=== PATIENT | female | born 1970 | race Caucasian/White ===

== ENCOUNTER 2024-05-12 21:53 | Emergency (ER) | payer SELFPAY ==
[2024-05-12 22:02] VITALS: BP 117/70
[2024-05-12 22:18] LABS: % Basophils 0.2 % (0-2); % Immature Granulocytes 0.3 % (0-0.5); % Monocytes 6.2 % (1.7-9.3); % Neutrophils 60.3 % (42.2-75.2); Absolute Monocytes 0.4 10^3/uL (0.1-0.6); Absolute Neutrophils 3.6 10^3/uL (1.4-6.5); Hematocrit 35.9 % (37.0-47.0); Hemoglobin 12.1 g/dL (12.0-16.0); Mean Corp Hgb Conc. 33.7 g/dL (33.0-37.0); Mean Corpuscular Hgb 27.4 pg (27.0-31.0); Mean Corpuscular Volume 81.4 fL (81.0-99.0); Mean Platelet Volume 8.2 fL (7.4-10.4); Nucleated Red Blood Cells % 0 %; Platelet Count 255 10^3/uL (130-400); Red Blood Cell Count 4.41 10^6/uL (4.20-5.40); Red Cell Dist. Width 15.2 % (11.5-14.5); White Blood Cell Count 5.9 10^3/uL (4.8-10.8)
[2024-05-12 22:37] LABS: ALT (SGPT) 14 U/L (0-35); AST (SGOT) 18 U/L (14-36); Albumin 3.6 g/dl (3.5-5.0); Alkaline Phosphatase 116 U/L (38-126); Blood Urea Nitrogen 3 mg/dl (7-17); Calcium 8.9 mg/dl (8.4-10.2); Carbon Dioxide 30 mmol/L (22-30); Chloride 96 mmol/L (98-107); Glucose 107 mg/dl (70-99); Potassium 3.6 mmol/L (3.5-5.1); Sodium 130 mmol/L (135-145); Total Bilirubin 0.4 mg/dl (0.2-1.3); Total Protein 6.4 g/dl (6.3-8.2); eGFR > 60.00
--- NOTE | 2024-05-12 23:26 | ED.GENMED ---
History of Present Illness
General
Chief Complaint: Cold/Flu/URI Symptoms
Source: patient
Exam Limitations: none
Time Seen by Provider: 05/12/24 23:25
Nursing documentation reviewed up to this point in time: agreed with
History of Present Illness
History of Present Illness:
53-year-old female with history of COPD, smoker, CAD, A-fib on aspirin, HTN, HLD, [place], aortic regurgitation, anemia, anxiety presents stating she tested flu +5 days ago' of just not getting better.' She states her nose is stuffy, she has no taste,
she is fatigued and she has general body aches. She denies N/V/D, she has had a couple episodes of diarrhea. She denies chest pain or shortness of breath.
Past History
Past History
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
diverticulitis with abscess); Negative HTN
ED Past Surgical History: Other (Abscess drainage from acute diverticulitis)
Social History
Tobacco: Smoker
Alcohol: None
Drug: None
Personal:
Living: with family
Employment: Not employed
Family History
Family History: Hypertension and CAD (uncles); Negative Early CAD
Review of Systems
Review of Systems
Allergies reviewed?: Yes
All Other Systems: ROS reviewed and negative except as documented in HPI and ROS
Constitutional: Reports fatigue; Denies fever
EENT: Reports other (Loss of taste); Denies sore throat
Respiratory: Denies cough or trouble breathing
Cardiac: Denies chest pain
ABD/GI: Reports nausea and diarrhea; Denies abdominal pain or vomiting
: Denies dysuria or difficulty voiding
Musculoskeletal: Reports other (General body aches)
Skin: Reports no symptoms
Neurological: Reports no symptoms
Phy Exam
Physical Exam
Physical Exam:
GENERAL: No acute distress. A&Ox3.
CONSTITUTIONAL: Afebrile.
EYES: clear, conjunctivae normal
ENMT: moist mucus membranes, Pharynx nl, nasal voice, sinus stuffiness
RESPIRATORY: Regular respirations, nonlabored, lungs clear.
CARDIOVASCULAR: Regular rate and rhythm, no murmurs, no rubs.
GI: Soft, nontender, normal BS
MUSCULOSKELETAL: Moves with ease. Well perfused.
SKIN: Warm, dry, pink
PSYCH: Depressed mood and affect. Well kept, interactive and appropriate
NEUROLOGIC: Awake, alert and oriented. No focal neurological deficits
Course
Orders/Labs/Results
Orders:
Orders
05/12/24 22:12
Complete Blood Count/With Diff Urgent
Comprehensive Metabolic Panel Urgent
05/12/24 23:30
COVID-19 Antigen Urgent
Source: Nasal Swab
Ketorolac [Toradol] 15 mg IV NOW STA
05/12/24 23:31
0.9% Sodium Chloride 1000 ml [Nss] 1,000 ml IV BOLUS
05/12/24 23:47
Ondansetron Injectable [Zofran] 4 mg IV NOW STA
Abnormal Lab Results
05/12/24
22:12
Hct 35.9 L %
(37.0-47.0)
RDW 15.2 H %
(11.5-14.5)
Sodium 130 L mmol/L
(135-145)
Chloride 96 L mmol/L
(98-107)
BUN 3 L mg/dl
(7-17)
Glucose 107 H mg/dl
(70-99)
05/12/24 22:12
05/12/24 22:12
Vital Signs
Initial and Last Documented VS:
Initial Vital Signs
Temp Pulse Resp BP Pulse Ox
97.8 F 73 18 117/70 98
05/12/24 22:02 05/12/24 22:02 05/12/24 22:02 05/12/24 22:02 05/12/24 22:02
Last Documented Vital Signs
Temp Pulse Resp BP Pulse Ox
97.8 F 73 18 117/70 98
05/12/24 22:02 05/12/24 22:02 05/12/24 22:02 05/12/24 22:02 05/12/24 23:15
MDM/Problems Addressed
Differential Diagnosis Includes:
COVID, dehydration
MDM/Problems Addressed:
53-year-old female with history of COPD, smoker, CAD, A-fib on aspirin, HTN, HLD, [place], aortic regurgitation, anemia, anxiety presents stating she tested flu +5 days ago' of just not getting better.' She states her nose is stuffy, she has no taste,
she is fatigued and she has general body aches. She denies N/V/D, she has had a couple episodes of diarrhea. She denies chest pain or shortness of breath.
Afebrile, NAD
CBC unremarkable
CMP: Sodium 130 otherwise unremarkable (NSS infusing)
Covid neg
After IVFs, IV Toradol and Zofran, feeling a little better
Stable for discharge
*Critical Care Note
Total Time (30-74mins, 75-104mins- exclusive of procedures): Not Applicable
ED Attending Note
-
Portions of this chart may have been created with voice recognition software.� Occasional wrong word or��sound alike� substitutions may have occurred due to the inherent limitations of voice recognition software.
Discharge Plan
Departure
Patient Disposition: Home (Routine Discharge)
Date of Disposition: 05/13/24
Time of Disposition: 00:12
Patient with high blood pressure during this ER visit?: No
Condition: Good
Covid-19: Negative COVID-19
Discharge Problem:
Influenza
Instructions: Flu in adults - Discharge instructions
Prescriptions:
New
ondansetron 4 mg tablet,disintegrating
4 mg PO Q8H PRN (Reason: nausea and vomiting) 4 Days Qty: 12 0RF
No Action
Atorvastatin
80 mg PO QPM
aspirin 81 MG tablet,chewable
162 mg PO DAILY
metoprolol tartrate 12.5 MG tablet
25 mg PO DAILY
nitroglycerin 0.4 MG tablet, sublingual
0.4 mg sublingual PRN PRN (Reason: chest pain)
Referrals:
UNKNOWN - PT DOES,NOT KNOW [Family Provider] -
Activity Restrictions/Additional Instructions:
As we discussed, your symptoms are related to the flu.
Drink at least eight 8 ounce glasses of water/fluid daily.
Tylenol or ibuprofen as needed for general body aches, fever
Interventions
Interventions:
*Risk Screen - Suicide Last Done: 05/12/24 22:02
*General Assessment Last Done: 05/12/24 22:02
*Neglect/Abuse Screening Last Done: 05/12/24 22:02
*ED COVID-19 Vaccine History Last Done: 05/12/24 23:15
*Nursing Disposition Last Done: 05/13/24 00:32
ED- Pulmonary Assessment Last Done: 05/12/24 23:15
Discharge Date and Time
Discharge Date/Time: 05/13/24 00:49
Print Language: ANGOLAN
[2024-05-12 23:49] LABS: COVID-19 Antigen Negative (Negative)
[2024-05-12] MEDS: ZOFRAN 4 MG IV (23:56)
[2024-05-12] MEDS: NSS 1000 IV (23:56)
[2024-05-12] MEDS: TORADOL 15 MG IV (23:56)
== END 2024-05-13 00:49 | disposition home or self-care (01) ==
LOC: EMR 21:53
PROVIDERS: Registered Nurse; Student in an Organized Health Care Education/Training Program; EMERGENCY PHYSICIAN Student in an Organized Health Care Education/Training Program
DX: J11.1 Influenza due to unidentified influenza virus with other respiratory manifestations (principal); R19.7 Diarrhea, unspecified; R11.0 Nausea; Z11.52 Encounter for screening for COVID-19; J44.9 Chronic obstructive pulmonary disease, unspecified; I25.10 Atherosclerotic heart disease of native coronary artery without angina pectoris; I48.91 Unspecified atrial fibrillation; I10 Essential (primary) hypertension; E78.00 Pure hypercholesterolemia, unspecified; I35.1 Nonrheumatic aortic (valve) insufficiency; D64.9 Anemia, unspecified; F41.9 Anxiety disorder, unspecified; F17.200 Nicotine dependence, unspecified, uncomplicated; K57.92 Diverticulitis of intestine, part unspecified, without perforation or abscess without bleeding; I25.2 Old myocardial infarction; Z79.82 Long term (current) use of aspirin; Z86.16 Personal history of COVID-19; Z88.1 Allergy status to other antibiotic agents; Z88.5 Allergy status to narcotic agent; Z88.0 Allergy status to penicillin
CPT/HCPCS: 99284; 96374; 96375; 96361; 80053; 85025; 87811

== ENCOUNTER 2024-08-16 05:42 | Emergency (ER) | payer SELFPAY ==
[2024-08-16 05:46] VITALS: BP 124/78
[2024-08-16] MEDS: TORADOL 15 MG IV (07:01)
[2024-08-16 07:03] VITALS: BMI 22.5
--- NOTE | 2024-08-16 07:06 | ED.GENMED ---
History of Present Illness
General
Chief Complaint: Weakness
Source: patient
Exam Limitations: none
Time Seen by Provider: 08/16/24 06:29
Nursing documentation reviewed up to this point in time: agreed with
History of Present Illness
History of Present Illness:
Patient presents to ED secondary to recurrent generalized weakness over the past 3 days, with concern that her sodium or potassium may be low, as this has happened previously. In addition, patient who passed out 1 week ago and was evaluated at
[facility] emergency department, reports persistent posterior headache, neck pain, and back pain. Patient does report having received a chest x-ray during that visit, but allegedly refused recommended CT scan at that time. Denies blurred
vision. Denies dizziness. Denies loss of sensation or weakness. Denies difficulty with speech or swallowing. Patient does report decreased appetite, which has been chronic, secondary to 'GI issues'. Denies recent change in medications or diet.
Denies chest pain or shortness of breath. Patient does have intermittent chronic cough, which has not changed.
Past History
Past History
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
diverticulitis with abscess); Negative HTN
ED Past Surgical History: Other (Abscess drainage from acute diverticulitis)
Social History
Tobacco: Smoker
Alcohol: None
Drug: None
Personal:
Living: with family
Employment: Not employed
Family History
Family History: Hypertension and CAD (uncles); Negative Early CAD
Review of Systems
Review of Systems
Allergies reviewed?: Yes
All Other Systems: ROS reviewed and negative except as documented in HPI and ROS
Constitutional: Reports no symptoms; Denies fever or chills
Respiratory: Reports no symptoms
Cardiac: Reports no symptoms
ABD/GI: Reports no symptoms
: Reports no symptoms; Denies frequency or incontinence
Musculoskeletal: Reports neck pain and back pain
Skin: Reports no symptoms
Neurological: Denies dizzy, weakness or numbness
Phy Exam
Physical Exam
Physical Exam:
Physical Exam
General: mild distress, not acutely ill. afebrile
Head: nc/at. eomi
Neck: supple. normal range of motion. no midline tenderness
Heart: s1/s2 regular rate and rhythm
Lungs: no acute respiratory distress. clear bilaterally
Abdomen: normal bowel sounds. not tender.
Back: no midline tenderness. mild diffuse lower back tenderness to palpation
Neuro: alert and oriented x 3. no focal neurological deficits. normal speech
Skin: no rash
Psychiatric: well kept. interactive and cooperative
Extremities: no edema. no calf tenderness.
Course
Orders/Labs/Results
Orders:
Orders
08/16/24 06:37
Ketorolac [Toradol] 15 mg IV NOW STA
08/16/24 06:38
Electrocardiogram (*1) Urgent
Reason for Study: QTc Monitoring
CT Cervical Spine W/o Iv Contr Urgent
Comment:
Reason For Exam: trauma
CT Head W/o Iv Contrast Urgent
Comment:
Reason For Exam: trauma
EKG- Treatment ONCE
CR Lumbar Spine Comp Min 4 Vw* Urgent
Comment:
Reason For Exam: trauma
08/16/24 06:58
Complete Blood Count/With Diff Urgent
Comprehensive Metabolic Panel Urgent
Magnesium Urgent
TSH Urgent
08/16/24 07:01
Urinalysis Reflex To Culture Urgent
Date Specimen was Collected: 08/16/24
Time Specimen was Collected: 06:59
Urine Microscopic Reflex Cult Urgent
Urine Culture Urgent
HUGO Source: U
Specimen Description:
Date Specimen was Collected: 08/16/24
Time Specimen was Collected: 06:59
08/16/24 08:30
0.9% Sodium Chloride 500 ml [Nss] 500 ml IV BOLUS
08/16/24 09:20
Case Management Consult ONCE
Case Management Consult: VN/Home Care
Abnormal Lab Results
08/16/24 08/16/24
06:58 07:01
MCV 80.7 L fL
(81.0-99.0)
RDW 14.6 H %
(11.5-14.5)
Sodium 134 L mmol/L
(135-145)
BUN < 2 L mg/dl
(7-17)
Creatinine 0.5 L mg/dL
(0.6-1.0)
Leukocyte Esterase Rfl 3+ A
(Negative)
Urine RBC 3-6 A /HPF
(0-2)
Urine WBC (Reflex) 26-30 A /HPF
(0-5)
Urine Bacteria (Reflex) Moderate A
(Negative)
08/16/24 06:58
08/16/24 06:58
Vital Signs
Initial and Last Documented VS:
Initial Vital Signs
Temp Pulse Resp BP Pulse Ox
97.7 F 66 20 124/78 98
08/16/24 05:46 08/16/24 05:46 08/16/24 05:46 08/16/24 05:46 08/16/24 05:46
Last Documented Vital Signs
Temp Pulse Resp BP Pulse Ox
97.7 F 68 22 124/74 97
08/16/24 05:46 08/16/24 08:39 08/16/24 08:39 08/16/24 08:39 08/16/24 08:39
MDM/Problems Addressed
MDM/Problems Addressed:
Patient with an unremarkable workup in ED, including blood work and imaging studies. CT report and x-ray report reviewed and discussed with patient. Patient reports mild improvement in symptoms after treatment. Patient otherwise remains afebrile,
hemodynamically stable, and neurologically intact, and resting comfortably. With normal workup, patient feels comfortable going home at this time. As such, patient will be discharged home to the care of her daughter, with whom she lives with.
Case management consulted for home VN evaluation.
*EKG
Interpreted by ED Provider?: Yes
EKG Intrepretation Date: 08/16/24
Rate: normal
Rhythm: sinus
[place]: normal axis
Interval: normal interval
*Critical Care Note
Total Time (30-74mins, 75-104mins- exclusive of procedures): Not Applicable
ED Attending Note
-
Portions of this chart may have been created with voice recognition software.� Occasional wrong word or��sound alike� substitutions may have occurred due to the inherent limitations of voice recognition software.
Discharge Plan
Departure
Patient Disposition: Home (Routine Discharge)
Date of Disposition: 08/16/24
Time of Disposition: 09:20
Patient with high blood pressure during this ER visit?: Yes
Condition: Good
Discharge Problem:
Weakness, Back pain, Head injury
Instructions: Head injury in adults, Generalized Weakness (DC), Back Pain
Prescriptions:
New
ketorolac 10 mg tablet
10 mg PO Q8H PRN (Reason: Pain) Qty: 14 0RF
Rx Instructions:
maximum total duration of 5 days from all oral, intranasal, or parenteral formulations
No Action
Atorvastatin
80 mg PO QPM
aspirin 81 MG tablet,chewable
162 mg PO DAILY
metoprolol tartrate 12.5 MG tablet
25 mg PO DAILY
nitroglycerin 0.4 MG tablet, sublingual
0.4 mg sublingual PRN PRN (Reason: chest pain)
ondansetron 4 mg tablet,disintegrating
4 mg PO Q8H PRN (Reason: nausea and vomiting) 4 Days Qty: 12 0RF
Referrals:
UNKNOWN - PT DOES,NOT KNOW [Family Provider] -
Activity Restrictions/Additional Instructions:
As discussed, please follow-up with your primary care physician for reevaluation. You have been set up for home VN visit/evaluation. Please consider returning to ED with worsening symptoms. Your prescription has been sent electronically to [facility]
pharmacy in [place].
Interventions
Interventions:
*Risk Screen - Suicide Last Done: 08/16/24 05:46
*General Assessment Last Done: 08/16/24 05:46
*Neglect/Abuse Screening Last Done: 08/16/24 05:46
*ED- Fall Risk Assessment Last Done: 08/16/24 05:46
*ED COVID-19 Vaccine History Last Done: 08/16/24 05:46
*Nursing Disposition Last Done: 08/16/24 10:57
ED- Cardiac Assessment Last Done: 08/16/24 06:23
ED- Neurological Assessment Last Done: 08/16/24 06:23
ED- Pulmonary Assessment Last Done: 08/16/24 06:23
Discharge Date and Time
Discharge Date/Time: 08/16/24 10:58
Print Language: LUXEMBOURGISH
[2024-08-16 07:09] LABS: % Basophils 0.8 % (0-2); % Eosinophils 0.3 % (0-6); % Immature Granulocytes 0.3 % (0-0.5); % Lymphocytes 23.6 % (20.5-51.1); % Monocytes 5.4 % (1.7-9.3); % Neutrophils 69.6 % (42.2-75.2); Absolute Basophils 0.1 10^3/uL (0-0.2); Absolute Lymphocytes 1.5 10^3/uL (1.2-3.4); Absolute Monocytes 0.3 10^3/uL (0.1-0.6); Absolute Neutrophils 4.4 10^3/uL (1.4-6.5); Hematocrit 37.7 % (37.0-47.0); Hemoglobin 13.1 g/dL (12.0-16.0); Mean Corp Hgb Conc. 34.7 g/dL (33.0-37.0); Mean Corpuscular Hgb 28.1 pg (27.0-31.0); Mean Corpuscular Volume 80.7 fL (81.0-99.0); Mean Platelet Volume 8.4 fL (7.4-10.4); Nucleated Red Blood Cells % 0 %; Platelet Count 309 10^3/uL (130-400); Red Blood Cell Count 4.67 10^6/uL (4.20-5.40); Red Cell Dist. Width 14.6 % (11.5-14.5); White Blood Cell Count 6.3 10^3/uL (4.8-10.8)
[2024-08-16 07:22] LABS: Urine Albumin Negative (Neg - Trace); Urine Bilirubin Negative (Negative); Urine Character Slightly Cloudy (Clear); Urine Color Yellow; Urine Glucose Negative (Negative); Urine Ketone Negative (Negative); Urine Leukocyte 3+ (Negative); Urine Nitrite Negative (Negative); Urine Occult Blood Negative (Negative); Urine Urobilinogen Negative (Neg - 1+)
[2024-08-16 07:26] LABS: ALT (SGPT) 15 U/L (0-35); AST (SGOT) 20 U/L (14-36); Alkaline Phosphatase 95 U/L (38-126); Blood Urea Nitrogen < 2 mg/dl (7-17); Calcium 9.5 mg/dl (8.4-10.2); Carbon Dioxide 27 mmol/L (22-30); Chloride 103 mmol/L (98-107); Estimated Creatinine Clearance 89 ml/min; Glucose 99 mg/dl (70-99); Magnesium 1.6 mg/dl (1.6-2.3); Potassium 3.7 mmol/L (3.5-5.1); Sodium 134 mmol/L (135-145); Total Bilirubin 0.5 mg/dl (0.2-1.3); eGFR > 60.00
[2024-08-16 07:36] LABS: Urine Squamous Cell 26-30 /LPF (Few)
[2024-08-16 07:37] LABS: Urine Bacteria Moderate (Negative); Urine White Cell 26-30 /HPF (0-5)
[2024-08-16 07:56] LABS: TSH 2.72 uIU/ml (0.47-4.68)
[2024-08-16] MEDS: NSS 500 IV (08:36)
[2024-08-16 08:39] VITALS: BP 124/74
--- NOTE | 2024-08-16 10:33 | CM ---
Patient seen at bedside in ED. Patient stated that she lives in [facility] but is moving back to [facility] in a week. Patient daughter is caregiver and patient declined VN but indicated that she would like information to review with her
daughter and her PCP will send referral to VN when confirmed. Patient uses the [facility] in [place] on [address] and patient stated that she is currently able to drive and is independent but she is not driving. Patient has a nebulizer and an
inhaler at home. Daughter here for transportation and CM provided information for referral to [facility] [phone]. Patient address in intake is in [place] but patient states that she has never lived in [place]. CM will continue to
follow for discharge planning needs.
Plan; VN; pending patient PCP agreement/family choice
== END 2024-08-16 10:58 | disposition home or self-care (01) ==
LOC: EMR 05:42
PROVIDERS: EMERGENCY PHYSICIAN Emergency Medicine
DX: R53.1 Weakness (principal); M54.9 Dorsalgia, unspecified; S09.90XA Unspecified injury of head, initial encounter; X58.XXXA Exposure to other specified factors, initial encounter; I47.20 Ventricular tachycardia, unspecified; J44.9 Chronic obstructive pulmonary disease, unspecified; E78.00 Pure hypercholesterolemia, unspecified; I25.2 Old myocardial infarction; I38 Endocarditis, valve unspecified; I35.1 Nonrheumatic aortic (valve) insufficiency; I25.10 Atherosclerotic heart disease of native coronary artery without angina pectoris; F41.9 Anxiety disorder, unspecified; F17.200 Nicotine dependence, unspecified, uncomplicated; Z82.49 Family history of ischemic heart disease and other diseases of the circulatory system
CPT/HCPCS: 99284; 70450; 72110; 72125; 80053; 81003; 81015; 83735; 84443; 85025; 87086; 93005

== ENCOUNTER 2024-09-07 19:14 | Emergency (ER) | payer OTHER, SELFPAY ==
[2024-09-07 19:18] VITALS: BP 117/67
[2024-09-07 19:40] LABS: % Basophils 0.7 % (0-2); % Immature Granulocytes 0.5 % (0-0.5); % Lymphocytes 24.9 % (20.5-51.1); % Neutrophils 67.9 % (42.2-75.2); Absolute Basophils 0.1 10^3/uL (0-0.2); Absolute Lymphocytes 2.2 10^3/uL (1.2-3.4); Absolute Monocytes 0.5 10^3/uL (0.1-0.6); Hematocrit 38.4 % (37.0-47.0); Hemoglobin 12.9 g/dL (12.0-16.0); Mean Corp Hgb Conc. 33.6 g/dL (33.0-37.0); Mean Corpuscular Hgb 28.2 pg (27.0-31.0); Mean Platelet Volume 8.9 fL (7.4-10.4); Nucleated Red Blood Cells % 0 %; Platelet Count 351 10^3/uL (130-400); Red Blood Cell Count 4.57 10^6/uL (4.20-5.40); Red Cell Dist. Width 14.6 % (11.5-14.5); White Blood Cell Count 8.8 10^3/uL (4.8-10.8)
[2024-09-07 20:13] LABS: ALT (SGPT) 13 U/L (0-35); AST (SGOT) 18 U/L (14-36); Albumin 3.8 g/dl (3.5-5.0); Alkaline Phosphatase 95 U/L (38-126); Blood Urea Nitrogen 4 mg/dl (7-17); Calcium 9.5 mg/dl (8.4-10.2); Carbon Dioxide 30 mmol/L (22-30); Glucose 113 mg/dl (70-99); Total Bilirubin 0.4 mg/dl (0.2-1.3); Total Protein 6.6 g/dl (6.3-8.2); eGFR > 60.00
[2024-09-07 20:30] VITALS: BP 113/65
[2024-09-07 20:30] LABS: Chloride 104 mmol/L (98-107); Potassium 3.8 mmol/L (3.5-5.1); Sodium 136 mmol/L (135-145)
[2024-09-07 20:34] VITALS: BMI 21.5
--- NOTE | 2024-09-07 21:19 | ED.GENMED ---
History of Present Illness
General
Chief Complaint: Abnormal Lab Value
Source: patient
Exam Limitations: none
Time Seen by Provider: 09/07/24 20:31
Nursing documentation reviewed up to this point in time: agreed with
History of Present Illness
History of Present Illness:
Patient to ED wt complaint of fatigue. States when she feels like this it is usually because her Na and K are low. Brought to ED by family for eval. She has a history of hypokalemia. Takes potassium supplement daily and reports compliance with
med.
Past History
Past History
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
diverticulitis with abscess); Negative HTN
ED Past Surgical History: Other (Abscess drainage from acute diverticulitis)
Social History
Tobacco: Smoker
Alcohol: None
Drug: None
Personal:
Living: with family
Employment: Not employed
Family History
Family History: Hypertension and CAD (uncles); Negative Early CAD
Review of Systems
Review of Systems
Allergies reviewed?: Yes
All Other Systems: ROS reviewed and negative except as documented in HPI and ROS
Constitutional: Reports fatigue
EENT: Reports no symptoms
Respiratory: Reports no symptoms
Cardiac: Reports no symptoms
ABD/GI: Reports no symptoms
: Reports no symptoms
Musculoskeletal: Reports no symptoms
Skin: Reports no symptoms
Neurological: Reports weakness
Psychiatric: Reports no symptoms
Phy Exam
General Physical Exam
General Presentation: well appearing and no apparent distress
General age: appears stated age
General Skin: warm and dry
General Habitus: normal
General Mental: alert
Cardiovascular Exam
Cardiovascular Exam: regular rate/rhythm
Pulmonary Exam
Pulmonary Exam: lungs clear and no respiratory distress
Gastrointestinal Exam
Gastrointestinal Exam: non tender and soft
Musculoskeletal Exam
Musculoskeletal Exam: full ROM and neuro vasc intact
Skin Exam
Skin Exam: normal color, warm/dry and no rash
Psychiatric Exam
Psychiatric Exam: normal mood/affect
Course
Orders/Labs/Results
Orders:
Orders
09/07/24 19:14
ECG [Electrocardiogram (*1)] Urgent
Reason for Study: Fatigue / Weakness
09/07/24 19:15
EKG- Treatment ONCE
09/07/24 19:30
Complete Blood Count/With Diff Urgent
Comprehensive Metabolic Panel Urgent
Abnormal Lab Results
09/07/24
19:30
RDW 14.6 H %
(11.5-14.5)
BUN 4 L mg/dl
(7-17)
Glucose 113 H mg/dl
(70-99)
09/07/24 19:30
09/07/24 19:30
Vital Signs
Initial and Last Documented VS:
Initial Vital Signs
Temp Pulse Resp BP Pulse Ox
98.4 F 68 18 117/67 99
09/07/24 19:18 09/07/24 19:18 09/07/24 19:18 09/07/24 19:18 09/07/24 19:18
Last Documented Vital Signs
Temp Pulse Resp BP Pulse Ox
98.4 F 65 14 113/65 96
09/07/24 19:18 09/07/24 20:30 09/07/24 20:30 09/07/24 20:30 09/07/24 20:30
*Critical Care Note
Total Time (30-74mins, 75-104mins- exclusive of procedures): Not Applicable
Update Note
Update Note:
Labs reviewed. Na and K normal. No concnerning findings on exam. VSS. will discharge home with family, follow up with PCP. Given instructions on s/s to return to ED and she is agreeable to plan.
ED Attending Note
-
Portions of this chart may have been created with voice recognition software.� Occasional wrong word or��sound alike� substitutions may have occurred due to the inherent limitations of voice recognition software.
Discharge Plan
Departure
Patient Disposition: Home (Routine Discharge)
Date of Disposition: 09/07/24
Time of Disposition: 20:39
Patient with high blood pressure during this ER visit?: No
Condition: Good
Covid-19: Not Applicable
Discharge Problem:
Fatigue
Instructions: Fatigue (DC)
Prescriptions:
No Action
Atorvastatin
80 mg PO QPM
aspirin 81 MG tablet,chewable
162 mg PO DAILY
metoprolol tartrate 12.5 MG tablet
25 mg PO DAILY
nitroglycerin 0.4 MG tablet, sublingual
0.4 mg sublingual PRN PRN (Reason: chest pain)
ondansetron 4 mg tablet,disintegrating
4 mg PO Q8H PRN (Reason: nausea and vomiting) 4 Days Qty: 12 0RF
ketorolac 10 mg tablet
10 mg PO Q8H PRN (Reason: Pain) Qty: 14 0RF
Rx Instructions:
maximum total duration of 5 days from all oral, intranasal, or parenteral formulations
Referrals:
[facility] [Outside]
Referral Note: Physician referral
Activity Restrictions/Additional Instructions:
Return to the emergency department immediately for any changes in/worsening of your symptoms
Interventions
Interventions:
*Risk Screen - Suicide Last Done: 09/07/24 19:18
*General Assessment Last Done: 09/07/24 19:18
*Neglect/Abuse Screening Last Done: 09/07/24 19:18
*ED- Fall Risk Assessment Last Done: 09/07/24 20:34
*ED COVID-19 Vaccine History Last Done: 09/07/24 20:34
Discharge Date and Time
Print Language: MALTESE
== END 2024-09-07 21:26 | disposition home or self-care (01) ==
LOC: EMR 19:14
PROVIDERS: EMERGENCY PHYSICIAN Student in an Organized Health Care Education/Training Program
DX: R79.89 Other specified abnormal findings of blood chemistry (principal); R53.83 Other fatigue; I47.20 Ventricular tachycardia, unspecified; J44.9 Chronic obstructive pulmonary disease, unspecified; E78.00 Pure hypercholesterolemia, unspecified; I25.2 Old myocardial infarction; I38 Endocarditis, valve unspecified; I35.1 Nonrheumatic aortic (valve) insufficiency; F41.9 Anxiety disorder, unspecified; I10 Essential (primary) hypertension; I25.10 Atherosclerotic heart disease of native coronary artery without angina pectoris; F17.200 Nicotine dependence, unspecified, uncomplicated
CPT/HCPCS: 99283; 80053; 85025; 93005

== ENCOUNTER 2024-09-27 14:58 | Emergency (ER) | payer OTHER, SELFPAY ==
[2024-09-27 15:00] VITALS: BP 115/62
--- NOTE | 2024-09-27 17:35 | ED.GENMED ---
History of Present Illness
General
Chief Complaint: Abnormal Lab Value
Time Seen by Provider: 09/27/24 17:35
Past History
Past History
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
diverticulitis with abscess); Negative HTN
ED Past Surgical History: Other (Abscess drainage from acute diverticulitis)
Social History
Tobacco: Smoker
Alcohol: None
Drug: None
Personal:
Living: with family
Employment: Not employed
Family History
Family History: Hypertension and CAD (uncles); Negative Early CAD
Course
Orders/Labs/Results
Orders:
Orders
09/27/24 15:05
Electrocardiogram (*1) Urgent
Reason for Study: Other
Other Reason for Exam: hypokalemia
CMP [Comprehensive Metabolic Panel] Urgent
Complete Blood Count/With Diff Urgent
Magnesium Urgent
Comment: ADD ON
09/27/24 15:06
EKG- Treatment ONCE
09/27/24 15:13
Add On- LAB Urgent
Tests Added?: magnesium
Vital Signs
Initial and Last Documented VS:
Initial Vital Signs
Temp Pulse Resp BP Pulse Ox
97.9 F 57 18 115/62 99
09/27/24 15:00 09/27/24 15:00 09/27/24 15:00 09/27/24 15:00 09/27/24 15:00
Last Documented Vital Signs
Temp Pulse Resp BP Pulse Ox
97.9 F 57 18 115/62 99
09/27/24 15:00 09/27/24 15:00 09/27/24 15:00 09/27/24 15:00 09/27/24 15:00
*Pulse Oximetry
SaO2: 99
Oxygen Mode of Delivery: Room air
Patient hypoxic: no
*EKG
Interpreted by ED Provider?: Yes
Interpretation: abnormal
Comparison EKG: no changes
Heart Rate: 57
Rate: bradycardiac
Rhythm: sinus
[place]: normal axis
Interval: normal interval
QRS Pattern: normal QRS
Ischemia: no ischemia
ED Attending Note
-
Portions of this chart may have been created with voice recognition software.� Occasional wrong word or��sound alike� substitutions may have occurred due to the inherent limitations of voice recognition software.
Discharge Plan
Departure
Prescriptions:
No Action
Atorvastatin
80 mg PO QPM
aspirin 81 MG tablet,chewable
162 mg PO DAILY
metoprolol tartrate 12.5 MG tablet
25 mg PO DAILY
nitroglycerin 0.4 MG tablet, sublingual
0.4 mg sublingual PRN PRN (Reason: chest pain)
ondansetron 4 mg tablet,disintegrating
4 mg PO Q8H PRN (Reason: nausea and vomiting) 4 Days Qty: 12 0RF
ketorolac 10 mg tablet
10 mg PO Q8H PRN (Reason: Pain) Qty: 14 0RF
Rx Instructions:
maximum total duration of 5 days from all oral, intranasal, or parenteral formulations
Interventions
Interventions:
*Risk Screen - Suicide Last Done: 09/27/24 15:00
*General Assessment Last Done: 09/27/24 15:00
*Neglect/Abuse Screening Last Done: 09/27/24 15:00
*ED COVID-19 Vaccine History Last Done: 09/27/24 15:00
Discharge Date and Time
Print Language: WALLIS[place]
== END 2024-09-27 17:36 ==
LOC: EMR 14:58
PROVIDERS: EMERGENCY PHYSICIAN Emergency Medicine
DX: M62.81 Muscle weakness (generalized) (principal); Z53.21 Procedure and treatment not carried out due to patient leaving prior to being seen by health care provider; Z91.148 Patient's other noncompliance with medication regimen for other reason; R53.83 Other fatigue
CPT/HCPCS: 93005

== ENCOUNTER 2024-09-30 12:32 | Emergency (ER) | payer OTHER, SELFPAY ==
[2024-09-30 12:32] VITALS: BMI 22.0
[2024-09-30 12:37] VITALS: BP 124/76
[2024-09-30 12:58] LABS: Hematocrit 41.4 % (37.0-47.0); Hemoglobin 13.7 g/dL (12.0-16.0); Mean Corp Hgb Conc. 33.1 g/dL (33.0-37.0); Mean Corpuscular Volume 83.1 fL (81.0-99.0); Nucleated Red Blood Cells % 0 %; Platelet Count 395 10^3/uL (130-400); Red Cell Dist. Width 13.9 % (11.5-14.5)
[2024-09-30 13:22] LABS: ALT (SGPT) 13 U/L (0-35); AST (SGOT) 21 U/L (14-36); Albumin 3.7 g/dl (3.5-5.0); Alkaline Phosphatase 134 U/L (38-126); Blood Urea Nitrogen 3 mg/dl (7-17); Calcium 9.4 mg/dl (8.4-10.2); Carbon Dioxide 27 mmol/L (22-30); Chloride 103 mmol/L (98-107); Glucose 110 mg/dl (70-99); Potassium 4.5 mmol/L (3.5-5.1); Sodium 135 mmol/L (135-145); Total Protein 6.6 g/dl (6.3-8.2); eGFR > 60.00
[2024-09-30 15:40] VITALS: BP 113/75
--- NOTE | 2024-09-30 16:30 | ED.GENMED ---
History of Present Illness
General
Chief Complaint: Abnormal Lab Value
Time Seen by Provider: 09/30/24 16:18
History of Present Illness
History of Present Illness:
54-year-old female presents the emergency department due to fatigue. She reports that she was here recently and had a low potassium on blood work this returns for reevaluation. On my evaluation the patient denies any significant complaints, states
she longer feels fatigued. Has had some mild fevers and chills recently but also notes URI symptoms and states 'I think I am coming down with a cold'. Denies chest pain or dyspnea. Notes that she has not had primary care for quite some time and
is out of some meds, indicates to me that she uses Zofran frequently due to chronic GI issues as well as potassium and nitroglycerin as needed.
Past History
Past History
ED Past Medical History: Arrthythmia (Ventricular tachycardia), COPD, Hypercholesterolemia, [place] (2 'silent MIs'), Valvular disease (aortic regurgitation), Psychiatric (anxiety) and Other (Septicemia as a child after a blunt trauma, history of
diverticulitis with abscess); Negative HTN
ED Past Surgical History: Other (Abscess drainage from acute diverticulitis)
Social History
Tobacco: Smoker
Alcohol: None
Drug: None
Personal:
Living: with family
Employment: Not employed
Family History
Family History: Hypertension and CAD (uncles); Negative Early CAD
Review of Systems
Review of Systems
Allergies reviewed?: Yes
All Other Systems: ROS reviewed and negative except as documented in HPI and ROS
Phy Exam
Physical Exam
Physical Exam:
GEN: Well appearing, NAD, WDWN
HEENT: Oral mucosa moist, no scleral icterus
Cardiac: Regular rate and rhythm, no murmurs
Lung: No respiratory distress, no tachypnea
MSK: No gross deformity or injuries
Skin: Good color, no pallor or jaundice, no rashes
Neuro: AO x3, moves all extremities freely
Psych: Calm, cooperative
Course
Orders/Labs/Results
Orders:
Orders
09/30/24 12:39
ECG [Electrocardiogram (*1)] Urgent
Reason for Study: Fatigue / Weakness
EKG- Treatment ONCE
09/30/24 12:47
Complete Blood Count/With Diff Urgent
Comprehensive Metabolic Panel Urgent
Abnormal Lab Results
09/30/24
12:47
BUN 3 L mg/dl
(7-17)
Glucose 110 H mg/dl
(70-99)
Alkaline Phosphatase 134 H U/L
(38-126)
09/30/24 12:47
09/30/24 12:47
Vital Signs
Initial and Last Documented VS:
Initial Vital Signs
Temp Pulse Resp BP Pulse Ox
98.5 F 76 18 124/76 98
09/30/24 12:37 09/30/24 12:37 09/30/24 12:37 09/30/24 12:37 09/30/24 12:37
Last Documented Vital Signs
Temp Pulse Resp BP Pulse Ox
98.5 F 64 18 113/75 98
09/30/24 12:37 09/30/24 15:40 09/30/24 15:40 09/30/24 15:40 09/30/24 16:31
MDM/Problems Addressed
MDM/Problems Addressed:
Patient is well with no complaints on my exam. Repeat labs Are normal. Medication refills provided
Comment
Comment:
EKG independently interpreted by me shows normal sinus rhythm at a rate of 66 with normal QTc and no ischemic changes
*Pulse Oximetry
SaO2: 98
Oxygen Mode of Delivery: Room air
Patient hypoxic: no
*Critical Care Note
Total Time (30-74mins, 75-104mins- exclusive of procedures): Not Applicable
ED Attending Note
-
Portions of this chart may have been created with voice recognition software.� Occasional wrong word or��sound alike� substitutions may have occurred due to the inherent limitations of voice recognition software.
Discharge Plan
Departure
Patient Disposition: Home (Routine Discharge)
Date of Disposition: 09/30/24
Time of Disposition: 16:30
Patient with high blood pressure during this ER visit?: No
Discharge Problem:
Fatigue, Medication refill
Instructions: Fatigue (DC)
Prescriptions:
New
nitroglycerin 0.3 mg tablet, sublingual
0.3 mg sublingual Q5-15M PRN (Reason: chest pain) Qty: 30 0RF
ondansetron 4 mg tablet,disintegrating
4 mg PO TIDPRN PRN (Reason: nausea/vomiting) Qty: 10 0RF
potassium chloride [Klor-Con M10] 10 mEq tablet,ER particles/crystals
20 meq PO DAILY Qty: 30 0RF
No Action
atorvastatin 20 mg tablet
20 mg PO DAILY
aspirin 81 mg tablet,chewable
81 mg PO DAILY
albuterol sulfate 90 mcg/actuation HFA aerosol inhaler
1 puff INHALATION R TIDPRN PRN (Reason: sob)
metoprolol tartrate 25 mg tablet
25 mg PO BID
tiotropium bromide [Spiriva with HandiHaler] 18 mcg capsule, w/inhalation device
18 mcg INHALATION R DAILY
Referrals:
NONE,* [Family Provider, Internal Medicine]
Activity Restrictions/Additional Instructions:
[facility]
[address]
[place] [address]
[phone]
Interventions
Interventions:
*Risk Screen - Suicide Last Done: 09/30/24 12:37
*General Assessment Last Done: 09/30/24 15:11
*Neglect/Abuse Screening Last Done: 09/30/24 12:37
*ED- Fall Risk Assessment Last Done: 09/30/24 15:11
*Nursing Disposition Last Done: 09/30/24 16:39
Discharge Date and Time
Discharge Date/Time: 09/30/24 16:40
Print Language: THAI
== END 2024-09-30 16:40 | disposition home or self-care (01) ==
LOC: EMR 12:32
PROVIDERS: Emergency Medicine; EMERGENCY PHYSICIAN Emergency Medicine
DX: R50.9 Fever, unspecified (principal); R53.83 Other fatigue; R53.1 Weakness; Z76.0 Encounter for issue of repeat prescription; J44.9 Chronic obstructive pulmonary disease, unspecified; E78.00 Pure hypercholesterolemia, unspecified; I25.2 Old myocardial infarction; I35.1 Nonrheumatic aortic (valve) insufficiency; K57.92 Diverticulitis of intestine, part unspecified, without perforation or abscess without bleeding; F41.9 Anxiety disorder, unspecified; F17.200 Nicotine dependence, unspecified, uncomplicated; Z79.82 Long term (current) use of aspirin; Z79.899 Other long term (current) drug therapy; Z88.1 Allergy status to other antibiotic agents; Z88.5 Allergy status to narcotic agent; Z88.0 Allergy status to penicillin
CPT/HCPCS: 99283; 80053; 85025; 93005

== ENCOUNTER 2024-12-11 23:28 | Emergency (ER) | payer OTHER, SELFPAY ==
[2024-12-11 23:30] VITALS: BP 131/78
[2024-12-12] VITALS: BP 127/57
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
[2024-12-12] MEDS: PROTONIX IV 40 MG IV (00:11)
[2024-12-12 00:34] LABS: ALT (SGPT) 13 U/L (0-35); AST (SGOT) 21 U/L (14-36); Albumin 3.9 g/dl (3.5-5.0); Alkaline Phosphatase 104 U/L (38-126); Blood Urea Nitrogen 4 mg/dl (7-17); Calcium 9.4 mg/dl (8.4-10.2); Carbon Dioxide 24 mmol/L (22-30); Chloride 104 mmol/L (98-107); Glucose 100 mg/dl (70-99); Iron 50 ug/dl (37-170); Magnesium 1.8 mg/dl (1.6-2.3); Potassium 4.2 mmol/L (3.5-5.1); Sodium 134 mmol/L (135-145); Total Protein 6.8 g/dl (6.3-8.2); eGFR > 60.00
[2024-12-12 00:38] LABS: Hematocrit 35.7 % (37.0-47.0); Hemoglobin 12.4 g/dL (12.0-16.0); Mean Corp Hgb Conc. 34.7 g/dL (33.0-37.0); Mean Corpuscular Volume 83.2 fL (81.0-99.0); Nucleated Red Blood Cells % 0.2 %; Platelet Count 381 10^3/uL (130-400); Red Cell Dist. Width 14.6 % (11.5-14.5)
[2024-12-12 00:42] LABS: Total Iron Binding Capacity 271 ug/dl (265-497)
[2024-12-12 01:00] VITALS: BP 122/70
[2024-12-12 01:08] LABS: Ferritin 122.0 ng/ml (11.1-264.0)
== END 2024-12-12 02:00 | disposition home or self-care (01) ==
LOC: EMR 23:28
PROVIDERS: EMERGENCY PHYSICIAN Emergency Medicine
DX: K21.00 Gastro-esophageal reflux disease with esophagitis, without bleeding (principal); M79.10 Myalgia, unspecified site; R53.83 Other fatigue; R25.3 Fasciculation; R20.2 Paresthesia of skin; I25.2 Old myocardial infarction; I35.1 Nonrheumatic aortic (valve) insufficiency; J44.9 Chronic obstructive pulmonary disease, unspecified; F17.210 Nicotine dependence, cigarettes, uncomplicated; Z79.899 Other long term (current) drug therapy; Z82.49 Family history of ischemic heart disease and other diseases of the circulatory system; Z87.19 Personal history of other diseases of the digestive system
CPT/HCPCS: 99283; 96374; 80053; 82728; 83540; 83550; 83735; 85025; 93005

== ENCOUNTER 2024-12-13 20:01 | Emergency (ER) | payer OTHER, SELFPAY ==
[2024-12-13 20:06] VITALS: BP 98/74
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
[2024-12-13 20:31] LABS: Urine Character Clear (Clear)
[2024-12-13 20:32] LABS: Hematocrit 36.7 % (37.0-47.0); Hemoglobin 12.5 g/dL (12.0-16.0); Mean Corp Hgb Conc. 34.1 g/dL (33.0-37.0); Mean Corpuscular Volume 84.4 fL (81.0-99.0); Nucleated Red Blood Cells % 0 %; Platelet Count 383 10^3/uL (130-400); Red Cell Dist. Width 14.5 % (11.5-14.5)
[2024-12-13 20:47] LABS: Lipase 76 U/L (23-300)
[2024-12-13 20:49] LABS: ALT (SGPT) 12 U/L (0-35); AST (SGOT) 20 U/L (14-36); Albumin 3.8 g/dl (3.5-5.0); Alkaline Phosphatase 102 U/L (38-126); Blood Urea Nitrogen 4 mg/dl (7-17); Calcium 9.3 mg/dl (8.4-10.2); Carbon Dioxide 26 mmol/L (22-30); Chloride 101 mmol/L (98-107); Glucose 88 mg/dl (70-99); Potassium 3.7 mmol/L (3.5-5.1); Sodium 132 mmol/L (135-145); Total Protein 6.7 g/dl (6.3-8.2); eGFR > 60.00
[2024-12-13 21:14] LABS: Urine Red Blood Cell 0-2 /HPF (0-2); Urine Squamous Cell >30 /LPF (Few)
[2024-12-13 21:15] LABS: Urine White Cell 30-40 /HPF (0-5)
== END 2024-12-13 21:06 | disposition left against medical advice (07) ==
LOC: EMR 20:01
PROVIDERS: EMERGENCY PHYSICIAN Emergency Medicine
DX: R11.2 Nausea with vomiting, unspecified (principal); Z53.21 Procedure and treatment not carried out due to patient leaving prior to being seen by health care provider
CPT/HCPCS: 80053; 81003; 81015; 83690; 85025; 87077; 87086